=== PATIENT | female | born 1970 | race Caucasian/White ===

== ENCOUNTER 2024-01-14 16:19 | Observation (INO) ==
--- NOTE | 2024-01-14 16:24 | ED Triage Note ---
Date of Service January 14, 2024 Provider in Triage Author: Duke Montes History of Present Illness This patient was briefly evaluated while in triage. An abbreviated physical exam was performed. This patient is a 53-year-old Female who presents to the ED for evaluation dizziness/vertigo started on Sunday-listing to the left chest tightness/SOB, STINSON seen at PCP and sent here for "CVA R/O" EKG changes in the office. Physical Exam GENERAL: NAD CARDIOVASCULAR: RRR RESPIRATORY: CTA NEURO: speech clear, normal gait, no gross deficits Initial orders for labs and / or imaging were placed and patient was placed in the waiting area until a bed is available. Please see further documentation for the full ED course.
[2024-01-14 16:57] LABS: Hematocrit (blood only) 42.6 % (37.0-47.0); Hemoglobin 14.2 g/dl (12.0-16.0); Mean Corpuscular Hemoglobin 31.1 pg (25.0-34.0); Mean Corpuscular Hgb Conc 33.3 g/dL (32.0-36.0); Mean Corpuscular Volume 93.4 fL (80.0-100.0); Mean Platelet Volume 9.3 fL (9.4-12.4); Partial Thromboplastin Time 27 Seconds (21-31); Platelet Count 242 K/uL (130-400); Prothrombin Time 10.9 Seconds (9.0-12.0); RDW Coefficient of Variation 12.4 % (11.5-14.5); RDW Standard Deviation 42.8 fL (36.4-46.3); Red Blood Count 4.56 M/uL (4.20-5.40); White Blood Count 5.16 K/ul (4.8-10.8)
--- NOTE | 2024-01-14 17:02 | XRay Report ---
XR chest 1V portable CLINICAL HISTORY: SOB, DIZZY TECHNIQUE: Single frontal radiograph of the chest was obtained. Comparison: None available at the time of this dictation. FINDINGS: No lines and tubes are seen. The cardiomediastinal silhouette is normal. The lungs are clear. No evid ence of pleural effusion or pneumothorax. IMPRESSION: No acute abnormalities and in particular no radiographic evidence of pneumonia. ACT 112: Negative or not required by law. Electronically signed by: Eduar Jaramillo M.D. 01/14/2024 5:00 PM
[2024-01-14 17:08] LABS: Albumin Globulin Ratio 1.4 (0.9-2); Albumin Level 4.3 gm/dl (3.4-5.0); BUN Creatinine Ratio 8.3 (10-20); Bilirubin,Total 0.4 mg/dl (0.2-1.0); Calcium 9.2 mg/dl (8.6-10.3); Creatinine Clr Calc Pharmacy 10.7 ml/min; Est GFR (African American) 110.8 ml/min; Est GFR (Non-African American) 95.6 ml/min; Magnesium 2.1 mg/dl (1.7-2.4); Potassium 3.4 mmol/L (3.5-5.1); Total Protein 7.3 gm/dl (6.0-8.3)
[2024-01-14 17:13] LABS: Troponin I High Sensitivity 3.4 pg/ml (0-14)
[2024-01-14 17:21] LABS: Basophils # (auto) 0.03 K/uL (0.00-0.20); Basophils % (auto) 0.6 %; Eosinophils # (auto) 0.03 K/uL (0.00-0.50); Eosinophils % (auto) 0.6 %; Immature Granulocytes # (auto) 0.01 K/uL (0.01-0.20); Immature Granulocytes % (auto) 0.2 %; Lymphocytes # (auto) 2.77 K/uL (1.20-3.40); Lymphocytes % (auto) 53.7 %; Monocytes # (auto) 0.32 K/uL (0.11-0.59); Monocytes % (auto) 6.2 %; Neutrophils % (auto) 38.7 %
[2024-01-14] MEDS: OPTIRAY 320 125ml IV ONE (18:12)
--- NOTE | 2024-01-14 18:26 | Emergency Department Note ---
History of Present Illness General Chief complaint: Cardiac Assessment Stated complaint: VERTIGO, CHEST PAINS, HYPERTENSION, ABN EKG Time Seen by Provider: 01/14/24 17:56 History of Present Illness Maximum Pain Intensity: 4 This is a 53-year-old female that presents to the emergency department via private vehicle with complaints of "vertigo, dizziness, falling to the left side, chest pain". The patient notes this past Sunday she began with what she describes as vertigo and when she attempted to walk she was dizzy, and was falling to the left side. She notes that that seemed to improve but was still present over the weekend and with associated chest pressure worse with exertion. She also notes associated nausea. No previous symptoms such as this. She notes also some hot flashes secondary to menopause and some sweats. She notes a strong family history of heart disease with MIs in the age 50 range by family members. She notes at the present time she feels well and without symptoms however walking and here today she felt lightheaded. She has a history of hypertension. She has a history of hysterectomy. She denies any known drug allergies. No recent chiropractor manipulations. No head trauma or injury. Home Medications Medication Instructions Recorded Confirmed Type lisinopril 5 mg tablet 5 mg PO DAILY #30 tabs 09/07/21 01/14/24 Rx Allergies Allergy/AdvReac Type Severity Reaction Status Date / Time No Known Allergies Allergy Verified 01/14/24 18:30 Past Med/Surg History Problem List (Updated 01/15/24 @ 00:21 by Roque Riley PA-C) Dizziness (Acute) New onset headache Hypokalemia Hypertension Stroke-like symptoms Vertebral artery dissection (Acute) Dyspnea on exertion Palpitations Chest tightness (Acute) Medical History Anxiety Social History Smoking Status: Never smoker Hx Alcohol Use: Yes Alcohol type: wine Hx Substance Use: No Preferred Language: Syriac Communication Ability: Effective Hogshead Mat Inspector Required: No Beliefs That Will Affect Care: None Current Living Situation: Spouse Feels Safe at Home: Yes Review of Systems A total of 10 systems reviewed and were otherwise negative Physical Exam Vital Signs Vital Signs - 24 hr 01/14/24 16:22 01/14/24 16:46 01/14/24 16:48 Temperature 36.8 C Temperature Source Temporal Artery Scan Pulse Rate 71 69 Pulse Rate from SpO2 Sensor Respiratory Rate 15 Respiratory Effort / Characteristics Non-Labored Spontaneous Respiratory Depth Normal Blood Pressure 190/127 H 169/104 H Blood Pressure Mean 148 142 Pulse Oximetry 100 Sepsis Recent Fever Within 48 Hours No Sepsis New/Unexplained Change in Mental Status No Sepsis Action Taken by Nursing No Action Required 01/14/24 17:00 01/14/24 17:36 01/14/24 18:30 Temperature Temperature Source Pulse Rate 76 67 74 Pulse Rate from SpO2 Sensor 75 68 74 Respiratory Rate 15 20 15 Respiratory Effort / Characteristics Respiratory Depth Blood Pressure 153/105 H 154/100 H 170/116 H Blood Pressure Mean 128 118 136 Pulse Oximetry 99 98 98 Sepsis Recent Fever Within 48 Hours Sepsis New/Unexplained Change in Mental Status Sepsis Action Taken by Nursing 01/14/24 18:57 01/14/24 19:00 01/14/24 19:21 Temperature Temperature Source Pulse Rate 61 79 Pulse Rate from SpO2 Sensor 60 76 Respiratory Rate 16 20 Respiratory Effort / Characteristics Respiratory Depth Blood Pressure 162/94 H Blood Pressure Mean 134 Pulse Oximetry 99 97 Sepsis Recent Fever Within 48 Hours Sepsis New/Unexplained Change in Mental Status Sepsis Action Taken by Nursing 01/14/24 19:30 01/14/24 19:42 01/14/24 19:52 Temperature Temperature Source Pulse Rate 77 72 Pulse Rate from SpO2 Sensor Respiratory Rate 15 21 Respiratory Effort / Characteristics Respiratory Depth Blood Pressure 166/121 H Blood Pressure Mean 138 Pulse Oximetry Sepsis Recent Fever Within 48 Hours Sepsis New/Unexplained Change in Mental Status Sepsis Action Taken by Nursing 01/14/24 19:52 01/14/24 19:57 01/14/24 20:00 Temperature Temperature Source Pulse Rate 70 Pulse Rate from SpO2 Sensor 70 Respiratory Rate 16 Respiratory Effort / Characteristics Respiratory Depth Blood Pressure 166/121 H 170/95 H Blood Pressure Mean 138 141 Pulse Oximetry 98 Sepsis Recent Fever Within 48 Hours Sepsis New/Unexplained Change in Mental Status Sepsis Action Taken by Nursing 01/14/24 20:00 01/14/24 20:06 01/14/24 20:06 Temperature Temperature Source Pulse Rate Pulse Rate from SpO2 Sensor Respiratory Rate Respiratory Effort / Characteristics Respiratory Depth Blood Pressure 170/95 H 172/99 H 172/99 H Blood Pressure Mean 141 118 118 Pulse Oximetry Sepsis Recent Fever Within 48 Hours Sepsis New/Unexplained Change in Mental Status Sepsis Action Taken by Nursing 01/14/24 20:09 Temperature Temperature Source Pulse Rate 64 Pulse Rate from SpO2 Sensor Respiratory Rate 15 Respiratory Effort / Characteristics Respiratory Depth Blood Pressure Blood Pressure Mean Pulse Oximetry Sepsis Recent Fever Within 48 Hours Sepsis New/Unexplained Change in Mental Status Sepsis Action Taken by Nursing VITAL SIGNS - Vital signs and nursing notes were reviewed. Stable and afebrile. GENERAL -53-year-old female appearing her stated age who is in no acute distress. Communicates well with provider and answers questions appropriately. SKIN - Without rashes. HEAD - NC/AT. EYES - PERRL with EOMI bilaterally. Sclera anicteric. Palpebral conjunctiva pink and moist with no injection noted. EARS - No deformities of external structures noted on gross examination bilaterally. External auditory canals without discharge or otorrhea. Tympanic membranes pearly talbert without retraction or bulging. No fluid or purulent material visualized behind the TM. Handle of malleus, umbo, cone of light, pars tensa/flaccid all easily visualized. NOSE - Midline and without cyanosis. No epistaxis or purulent drainage noted. Septum midline without deviation or septal hematoma noted. MOUTH/OROPHARYNX - Without perioral cyanosis. Buccal mucosa pink and moist and without leukoplakia. Tongue midline with equal elevation of palate bilaterally. No tonsillar hypertrophy, erythema, or exudates noted. Good dentition noted. NECK - Neck with FROM. Supple to palpation. No nuchal rigidity. LUNGS - Chest wall symmetric without accessory muscle use, intercostals retractions, or central cyanosis. Normal vesicular breath sounds CTA B/L. No wheezes, rales, or rhonchi appreciated. CARDIAC - RRR with S1/S2. No murmur, rubs, or gallops appreciated. EXTREMITIES - No clubbing or peripheral cyanosis. +5/5 strength noted in UE/LE bilaterally. NEUROLOGIC - Cranial nerves II through XII grossly intact. PSYCH -alert, oriented and pleasant on exam Course Administered Medications Discontinued Medications Acetaminophen (Acetaminophen 325 Mg Tab) 650 mg PO NOW STA Stop: 01/14/24 20:02 Last Admin: 01/14/24 20:07 Dose: 650 mg Documented By: SADIE Aspirin (Aspirin Chew 324 Mg) 324 mg PO NOW STA Stop: 01/14/24 20:19 Last Admin: 07/01/24 20:23 Dose: 324 mg Documented By: SADIE Ioversol (Optiray 320 125ml) 119 ml IV ONCE ONE Stop: 01/14/24 18:12 Last Admin: 01/14/24 18:12 Dose: 119 ml Documented By: RICK Potassium Chloride (Potassium Chloride Crtab 20 Meq Tabcr) 20 meq PO NOW STA Stop: 01/14/24 20:29 Last Admin: 01/14/24 21:02 Dose: 20 meq Documented By: SADIE Medical Decision Making Laboratory Data 01/14/24 16:35 01/14/24 16:35 Lab Results 01/14/24 Range/Units 16:35 WBC 5.16 (4.8-10.8) K/ul RBC 4.56 (4.20-5.40) M/uL Hgb 14.2 (12.0-16.0) g/dl Hct 42.6 (37.0-47.0) % MCV 93.4 (80.0-100.0) fL MCH 31.1 (25.0-34.0) pg MCHC 33.3 (32.0-36.0) g/dL RDW Std Deviation 42.8 (36.4-46.3) fL RDW Coeff of Nevin 12.4 (11.5-14.5) % Plt Count 242 (130-400) K/uL MPV 9.3 L (9.4-12.4) fL Immature Gran % (Auto) 0.2 % Neut % (Auto) 38.7 % Lymph % (Auto) 53.7 % Billings % (Auto) 6.2 % Eos % (Auto) 0.6 % Baso % (Auto) 0.6 % Neut # (Auto) 2.00 (1.40-6.50) K/uL Lymph # (Auto) 2.77 (1.20-3.40) K/uL Billings # (Auto) 0.32 (0.11-0.59) K/uL Eos # (Auto) 0.03 (0.00-0.50) K/uL Baso # (Auto) 0.03 (0.00-0.20) K/uL Immature Gran # (Auto) 0.01 (0.01-0.20) K/uL PT 10.9 (9.0-12.0) Seconds INR 1.0 (0.9-1.1) APTT 27 (21-31) Seconds PTT Ratio 1.0 Sodium 140 (136-145) mmol/L Potassium 3.4 L (3.5-5.1) mmol/L Chloride 104 (98-107) mmol/L Carbon Dioxide 29 (21-32) mmol/L Anion Gap 7 (3-11) BUN 6 (6-23) mg/dl Creatinine 0.72 (0.6-1.2) mg/dl Est Cr Clr Drug Dosing 10.7 ml/min Est GFR ( Amer) 110.8 ml/min Est GFR (Non-Af Amer) 95.6 ml/min BUN/Creatinine Ratio 8.3 L (10-20) Glucose 105 H (70-99(Fasting)) mg/dl Calcium 9.2 (8.6-10.3) mg/dl Magnesium 2.1 (1.7-2.4) mg/dl Total Bilirubin 0.4 (0.2-1.0) mg/dl AST 15 (13-39) U/L ALT 11 (7-52) U/L Alkaline Phosphatase 76 (34-104) U/L Troponin I High Sens 3.4 (0-14) pg/ml Total Protein 7.3 (6.0-8.3) gm/dl Albumin 4.3 (3.4-5.0) gm/dl Globulin 3.0 (2.5-4.0) gm/dl Albumin/Globulin Ratio 1.4 (0.9-2) Imaging Data Radiologist's Impression: Chest X-Ray 01/14/24 16:24 XR chest 1V portable CLINICAL HISTORY: SOB, DIZZY TECHNIQUE: Single frontal radiograph of the chest was obtained. Comparison: None available at the time of this dictation. FINDINGS: No lines and tubes are seen. The cardiomediastinal silhouette is normal. The lungs are clear. No evidence of pleural effusion or pneumothorax. IMPRESSION: No acute abnormalities and in particular no radiographic evidence of pneumonia. ACT 112: Negative or not required by law. Electronically signed by: Eduar Jaramillo M.D. 01/14/2024 5:[address] 01/14/24 16:24 CT angio neck with con, CT head/brain wo con, CT angio head w con CLINICAL HISTORY: dizzy, hypertension TECHNIQUE: Contiguous axial CT images of the head were acquired from the base of the skull to the vertex without intravenous contrast administration. CT angiography of the head and neck was performed following intravenous administration of iodinated contrast. Coronal and sagittal MIPS were obtained from the axial data set and were submitted for review. Automated dose lowering techniques and/or adjustment according to patient size were utilized for this examination. All measurements were calculated based on NASCET criteria. Comparison: None available at the time of this dictation. FINDINGS: CT head: There is no acute intracranial hemorrhage or evidence of acute territorial infarction. No shift of the midline structures, mass effect, or extra-axial abnormalities are shown. Small thyroid nodules are seen which do not require follow-up by ACR criteria. CTA Neck: The left common carotid artery shares common origin with the innominate artery. There is no significant atherosclerotic plaque in the aortic arch or the origins of the innominate, left common carotid, and left subclavian arteries. Focal dissection is seen in the V4 segment of the right vertebral artery. The left vertebral artery is dominant. CTA Head: The anterior and posterior cerebral circulations are patent. No hemodynamically significant stenosis, aneurysm, dissection, or arteriovenous malformation is shown. IMPRESSION: 1. No acute intracranial hemorrhage, evidence of acute territorial infarction, or other acute intracranial disease process. 2. Focal dissection is seen in the V4 segment of the right vertebral artery. 3. No occlusion, hemodynamically significant stenosis, aneurysm, dissection, or arteriovenous malformation in the major intracranial arteries. Assessment of stenosis of the internal carotid arteries is based on NASCET criteria. ACT 112: Negative or not required by law. Electronically signed by: Eduar Jaramillo M.D. 01/14/2024 7:20 PM Head CTA 01/14/24 16:24 CT angio neck with con, CT head/brain wo con, CT angio head w con CLINICAL HISTORY: dizzy, hypertension TECHNIQUE: Contiguous axial CT images of the head were acquired from the base of the skull to the vertex without intravenous contrast administration. CT angiography of the head and neck was performed following intravenous administration of iodinated contrast. Coronal and sagittal MIPS were obtained from the axial data set and were submitted for review. Automated dose lowering techniques and/or adjustment according to patient size were utilized for this examination. All measurements were calculated based on NASCET criteria. Comparison: None available at the time of this dictation. FINDINGS: CT head: There is no acute intracranial hemorrhage or evidence of acute territorial infarction. No shift of the midline structures, mass effect, or extra-axial abnormalities are shown. Small thyroid nodules are seen which do not require follow-up by ACR criteria. CTA Neck: The left common carotid artery shares common origin with the innominate artery. There is no significant atherosclerotic plaque in the aortic arch or the origins of the innominate, left common carotid, and left subclavian arteries. Focal dissection is seen in the V4 segment of the right vertebral artery. The left vertebral artery is dominant. CTA Head: The anterior and posterior cerebral circulations are patent. No hemodynamically significant stenosis, aneurysm, dissection, or arteriovenous malformation is shown. IMPRESSION: 1. No acute intracranial hemorrhage, evidence of acute territorial infarction, or other acute intracranial disease process. 2. Focal dissection is seen in the V4 segment of the right vertebral artery. 3. No occlusion, hemodynamically significant stenosis, aneurysm, dissection, or arteriovenous malformation in the major intracranial arteries. Assessment of stenosis of the internal carotid arteries is based on NASCET criteria. ACT 112: Negative or not required by law. Electronically signed by: Eduar Jaramillo M.D. 01/14/2024 7:20 PM Neck CTA 01/14/24 16:24 CT angio neck with con, CT head/brain wo con, CT angio head w con CLINICAL HISTORY: dizzy, hypertension TECHNIQUE: Contiguous axial CT images of the head were acquired from the base of the skull to the vertex without intravenous contrast administration. CT angiography of the head and neck was performed following intravenous administration of iodinated contrast. Coronal and sagittal MIPS were obtained from the axial data set and were submitted for review. Automated dose lowering techniques and/or adjustment according to patient size were utilized for this examination. All measurements were calculated based on NASCET criteria. Comparison: None available at the time of this dictation. FINDINGS: CT head: There is no acute intracranial hemorrhage or evidence of acute territorial infarction. No shift of the midline structures, mass effect, or extra-axial abnormalities are shown. Small thyroid nodules are seen which do not require follow-up by ACR criteria. CTA Neck: The left common carotid artery shares common origin with the innominate artery. There is no significant atherosclerotic plaque in the aortic arch or the origins of the innominate, left common carotid, and left subclavian arteries. Focal dissection is seen in the V4 segment of the right vertebral artery. The left vertebral artery is dominant. CTA Head: The anterior and posterior cerebral circulations are patent. No hemodynamically significant stenosis, aneurysm, dissection, or arteriovenous malformation is shown. IMPRESSION: 1. No acute intracranial hemorrhage, evidence of acute territorial infarction, or other acute intracranial disease process. 2. Focal dissection is seen in the V4 segment of the right vertebral artery. 3. No occlusion, hemodynamically significant stenosis, aneurysm, dissection, or arteriovenous malformation in the major intracranial arteries. Assessment of stenosis of the internal carotid arteries is based on NASCET criteria. ACT 112: Negative or not required by law. Electronically signed by: Eduar Jaramillo M.D. 01/14/2024 7:20 PM Chest CTA 01/14/24 18:05 CT angio chest PE protocol CLINICAL HISTORY: Chest pain and dyspnea TECHNIQUE: Multidetector row helical CT of the chest was performed with angiographic protocol. Coronal and sagittal reformations were obtained. Coronal and sagittal MIPS were obtained from the axial data set and were submitted for review. Automated dose lowering techniques and/or adjustment according to patient size were utilized for this exam. CT DOSE: 1073.27 mGy.cm Comparison: Comparison is made to 01/14/2024 chest radiograph FINDINGS: Lungs and pleura: Atelectasis versus scarring is seen in the dependent portions of the lungs. Heart and pericardium: Heart size is normal. No pericardial effusion. Vessels: No evidence of pulmonary embolism. Mediastinum and wilfredo: Unremarkable. Chest wall and lower neck: Small thyroid nodules are noted which do not require follow-up by ACR criteria. Abdomen: Unremarkable. Bones: Unremarkable. IMPRESSION: No acute abnormality and in particular no evidence of pulmonary embolus. ACT 112: Negative or not required by law. Electronically signed by: Eduar Jaramillo M.D. 01/14/2024 7:13 PM [facility] Narrative Patient was seen and evaluated as above in room B02. Review was performed of triage nursing notes and vital signs. After obtaining a thorough history and physical examination the above work up was performed. Patient presents to us today for assessment of vertigo symptoms that began Sunday with balance issues, falling to the left side now with chest pain. On my assessment she is symptom- free. She is hypertensive. Patient was seen during a period of elevated volume and acuity in the emergency department and already had some testing as ordered from triage. CT angio studies of the head and neck were already ordered. Options of care were discussed with the patient. IV access was established. Labs were drawn. There is no leukocytosis or concerning anemia. Mild hypokalemia 3.4. Hyperglycemia 105. Initial troponin negative. EKG was performed and per my interpretation reveals normal sinus rhythm at a rate of 62 bpm. QTc 397. QRS 94. No ST elevation. This before the patient went to CT for the head and neck I did add on the chest to further evaluate the patient's symptoms for completeness. CT imaging as above. There is no PE. There is however comment of focal dissection in the V4 segment of the right vertebral artery. I did discuss this presentation with the on-call neurologist, Dr. Mclain and at this time we will proceed with MRI of the brain, blood pressure control, antiplatelet therapy such as with aspirin or Plavix. Patient is already being admitted at this time for further assessment of the exertional chest pain and will also at this time undergo further evaluation in the inpatient setting for this vertebral artery dissection. Case discussed with the hospitalist service. MRI will be ordered by the medicine service. Please refer to further documentation regarding her stay. GCS: 15 In the evaluation and treatment of this patient the following differential diagnoses were entertained: SC, PE, pericarditis, costochondritis, dissection, CVA, TIA, electrolyte disturbance, among others Impression & Plan Vertebral artery dissection, Dizziness, Chest tightness Discharge Plan Visit Data Chief Complaint: Cardiac Assessment Stated Complaint: VERTIGO, CHEST PAINS, HYPERTENSION, ABN EKG ED Provider: Luis Enrique Cedeño ED Midlevel Provider: Roque Riley Discharge Problem: Vertebral artery dissection, Dizziness, Chest tightness Patient Disposition: Admitted As Inpatient Condition: Good Discharge Instructions Interventions: ED Discharge Assessment Last Done: 01/14/24 21:33
--- NOTE | 2024-01-14 19:14 | CT Scan Report ---
CT angio chest PE protocol CLINICAL HISTORY: Chest pain and dyspnea TECHNIQUE: Multidetector row helical CT of the chest was performed with angiographic protocol. Argueta l and sagittal reformations were obtained. Coronal and sagittal MIPS were obtained from the axial lainey a set and were submitted for review. Automated dose lowering techniques and/or adjustment according to patient size were utilized for this exam. CT DOSE: 1073.27 mGy.cm Comparison: Comparison is made to 01/14/2024 chest radiograph FINDINGS: Lungs and pleura: Atelectasis versus scarring is seen in the dependent portions of the lungs. Heart and pericardium: Heart size is normal. No pericardial effusion. Vessels: No evidence of pulmonary embolism. Mediastinum and wilfredo: Unremarkable. Chest wall and lower neck: Small thyroid nodules are noted which do not require follow-up by ACR artur hogue. Abdomen: Unremarkable. Bones: Unremarkable. IMPRESSION: No acute abnormality and in particular no evidence of pulmonary embolus. ACT 112: Negative or not required by law. Electronically signed by: Eduar Jaramillo M.D. 01/14/2024 7:13 PM
--- NOTE | 2024-01-14 19:23 | CT Scan Report ---
CT angio neck with con, CT head/brain wo con, CT angio head w con CLINICAL HISTORY: dizzy, hypertension TECHNIQUE: Contiguous axial CT images of the head were acquired from the base of the skull to the arleth jesus without intravenous contrast administration. CT angiography of the head and neck was performed f ollowing intravenous administration of iodinated contrast. Coronal and sagittal MIPS were obtained fr om the axial data set and were submitted for review. Automated dose lowering techniques and/or adjus tment according to patient size were utilized for this examination. All measurements were calculated based on NASCET criteria. Comparison: None available at the time of this dictation. FINDINGS: CT head: There is no acute intracranial hemorrhage or evidence of acute territorial infarction. No sh ift of the midline structures, mass effect, or extra-axial abnormalities are shown. Small thyroid nodules are seen which do not require follow-up by ACR criteria. CTA Neck: The left common carotid artery shares common origin with the innominate artery. There is n o significant atherosclerotic plaque in the aortic arch or the origins of the innominate, left common carotid, and left subclavian arteries. Focal dissection is seen in the V4 segment of the right vert ebral artery. The left vertebral artery is dominant. CTA Head: The anterior and posterior cerebral circulations are patent. No hemodynamically significan t stenosis, aneurysm, dissection, or arteriovenous malformation is shown. IMPRESSION: 1. No acute intracranial hemorrhage, evidence of acute territorial infarction, or other acute intrac ranial disease process. 2. Focal dissection is seen in the V4 segment of the right vertebral artery. 3. No occlusion, hemodynamically significant stenosis, aneurysm, dissection, or arteriovenous malfor mation in the major intracranial arteries. Assessment of stenosis of the internal carotid arteries is based on NASCET criteria. ACT 112: Negative or not required by law. Electronically signed by: Eduar Jaramillo M.D. 01/14/2024 7:20 PM
--- NOTE | 2024-01-14 19:31 | History & Physical Report ---
Date of Service January 14, 2024 Assessment & Plan (1) Stroke-like symptoms: Plan: Patient had acute onset of dizziness and headache that caused her to fall on Wednesday 01/10 Patient is >24h from her onset of symptoms; TNKase would not be indicated Clinically, patient denies slurred speech, facial droop, or unilateral deficits She does endorse severe intermittent headache (which is new for her) and ongoing dizziness Head/neck imaging revealed focal dissection in the V4 segment of right vertebral artery MRI brain ordered, pending ASA 324 mg given in the ED Will plan to consult neurology pending MRI results May need to start on aspirin 81 mg daily Acetaminophen as needed for headaches Meclizine as needed for dizziness A.m. CBC, BMP, A1c, fasting lipid panel (2) Chest tightness: Plan: Intermittent chest tightness and SOB worse with exertion that began on Wednesday 01/10 Patient was concerned due to her strong family history of cardiac events CXR without acute findings Chest CTA without evidence of PE Troponin WNL x 2 EKG revealed NSR Echocardiogram ordered, pending Continuous telemetry monitoring (3) Vertebral artery dissection: Plan: See #1 (4) Hypertension: Plan: Patient was hypertensive at 190/127 on ED arrival No need for permissive HTN given timeline of symptoms Continue lisinopril (5) Hypokalemia: Plan: Mild; K 3.4 on arrival Potassium chloride 20mEq given Recheck a.m. K (6) New onset headache: (7) Dizziness: Plan Disposition: Obs -admit to [facility] telemetry Full code Heart healthy diet VTE PPx: SCDs; hold chemical DVT PPx pending MRI History of Present Illness Chief Complaint: Cardiac Assessment Primary Care Provider: Surekha Mccabe DO Fiona is a pleasant 53-year-old female with PMH of HTN and anxiety. She presented at the behest of her PCP on 01/13 for new onset headache, dizziness, chest tightness, and NUÑEZ over the weekend. She reports that her symptoms initially started on Wednesday 01/10. Symptoms came on acutely when she developed dizziness and fell. No head strike or neck injury. No LOC. No trauma to the chest wall. She initially thought it was an episode of vertigo; history of vertigo several years ago. She then began to notice new onset NUÑEZ when walking up steps. No SOB at rest. No orthopnea. She has noticed labored breathing, and believes she is becoming more winded than normal. She endorses chest tightness substernally that last 2 minutes at a time; alleviated by pursed breathing; she has been taking Tylenol for this. She also has intermittent headaches, located behind the eyes bilaterally. She rates the headaches 8/10 at present, 9/10 at worst. She has had intermittent dizziness on and off since Sunday, as well as visual changes such as blurry vision, but she believes her vision is always blurry. She wears contacts at baseline. Patient's only medication is lisinopril 5 mg daily, but she reports she took a couple additional tablets this weekend due to high blood pressure; BP has been around 170/100 via her home cuff. Patient is also been taking a course of Augmentin for a gum issue, but is currently at the end of her course. Significant family history for HTN, diabetes, MA, stroke, and CHF; her brother had an MA at 54 years old. No personal PMH of stroke, MA, diabetes, DVT/PE, or CHF. She denies any strokelike symptoms such as slurred speech, facial droop, or unilateral deficits. Patient denies smoking or tobacco use. She does endorse occasional alcohol use; and wine 3 nights ago. Patient is hypertensive at 166/121, admission; vitals otherwise stable. ED course: Aspirin 324mg ROS: Patient endorses night-sweats, intermittent episode dizziness, leaning to left side, severe bilateral HAs behind the eyes, chest tightness, SOB with exertion, and nausea/vomiting (on 01/10; resolved) Patient denies fever, chills, new body ache, loss of vision, slurred speech, facial droop, unilateral deficits, chest pain, pleuritic CP, SOB at rest, SOB when lying flat on back, abdominal pain, diarrhea, or change in urinary or bowel habits. Allergies Allergy/AdvReac Type Severity Reaction Status Date / Time No Known Allergies Allergy Verified 01/14/24 18:30 Home Medications Medication Instructions Recorded Confirmed Type lisinopril 5 mg tablet 5 mg PO DAILY #30 tabs 09/07/21 01/14/24 Rx Past Med/Surg History Problem List (Updated 01/15/24 @ 00:21 by Roque Riley PA-C) Dizziness (Acute) New onset headache Hypokalemia Hypertension Stroke-like symptoms Vertebral artery dissection (Acute) Dyspnea on exertion Palpitations Chest tightness (Acute) Medical History Anxiety Social History Smoking Status: Never smoker Hx Alcohol Use: Yes Alcohol type: wine Hx Substance Use: No Preferred Language: [place] 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 Beliefs That Will Affect Care: None Current Living Situation: Spouse Feels Safe at Home: Yes Review of Systems Review of Systems: See HPI above Physical Exam Physical Exam: General: no acute distress; pleasant affect non-toxic appearing; cooperative; SpO2 97% on RA HEENT: normocephalic, atraumatic; no scleral icterus; PERRLA; moist mucus membrane; vision and hearing grossly intact; patient demonstrates ability to smile, frown, and lift eyebrows without unilateral deficits; she reports sensation is intact and symmetric measured at 3 dermatomes along face Neck: supple; no lymphadenopathy; trachea midline; patient demonstrates ability to shrug shoulders against resistance without pain; she notes that she feels diz zy when she rotates her neck left and right Skin: warm, dry without signs of tenting; no cyanosis; no rashes, bruising, lesions, or erythema noted CV: chest wall NTP; RRR; S1/S2 normal; no murmurs/rubs/gallops; pulses intact and symmetric at radial, DP, and PT Lungs: no acute respiratory distress; symmetrical chest wall expansion; clear breath sounds across all lung oh w/o adventitious sounds; no wheezing ABD: Soft, NTP; BS present; no rebound/guarding; no distention MSK: no tics or fasciculations; no edema noted in the LEs b/l, nonerythematous; 5/5 delivery recruiter strength bilaterally Neuro: A&Ox3; normal mood and affect; fluent speech; no facial droop or slurred speech; no focal deficits; sensation grossly intact in the face/UEs/LEs b/l; negative pronator drift Results & Data Results & Data Vital Signs (Past 12 Hours) Vital Signs Temp Pulse Resp BP Pulse Ox 01/14/24 19:00 162/94 H 01/14/24 18:57 61 16 99 01/14/24 18:30 74 15 170/116 H 98 01/14/24 17:36 67 20 154/100 H 98 01/14/24 17:00 76 15 153/105 H 99 01/14/24 16:48 69 01/14/24 16:46 169/104 H 01/14/24 16:22 36.8 C 71 15 190/127 H 100 Laboratory Results Abnormal lab results 01/14/24 Range/Units 16:35 MPV 9.3 L (9.4-12.4) fL Potassium 3.4 L (3.5-5.1) mmol/L BUN/Creatinine Ratio 8.3 L (10-20) Glucose 105 H (70-99(Fasting)) mg/dl Diagnostic Findings Chest X-Ray 01/14/24 16:24 XR chest 1V portable CLINICAL HISTORY: SOB, DIZZY TECHNIQUE: Single frontal radiograph of the chest was obtained. Comparison: None available at the time of this dictation. FINDINGS: No lines and tubes are seen. The cardiomediastinal silhouette is normal. The lungs are clear. No evidence of pleural effusion or pneumothorax. IMPRESSION: No acute abnormalities and in particular no radiographic evidence of pneumonia. ACT 112: Negative or not required by law. Electronically signed by: Eduar Jaramillo M.D. 01/14/2024 5:[address] 01/14/24 16:24 CT angio neck with con, CT head/brain wo con, CT angio head w con CLINICAL HISTORY: dizzy, hypertension TECHNIQUE: Contiguous axial CT images of the head were acquired from the base of the skull to the vertex without intravenous contrast administration. CT angiography of the head and neck was performed following intravenous administration of iodinated contrast. Coronal and sagittal MIPS were obtained from the axial data set and were submitted for review. Automated dose lowering techniques and/or adjustment according to patient size were utilized for this examination. All measurements were calculated based on NASCET criteria. Comparison: None available at the time of this dictation. FINDINGS: CT head: There is no acute intracranial hemorrhage or evidence of acute territorial infarction. No shift of the midline structures, mass effect, or extra-axial abnormalities are shown. Small thyroid nodules are seen which do not require follow-up by ACR criteria. CTA Neck: The left common carotid artery shares common origin with the innominate artery. There is no significant atherosclerotic plaque in the aortic arch or the origins of the innominate, left common carotid, and left subclavian arteries. Focal dissection is seen in the V4 segment of the right vertebral artery. The left vertebral artery is dominant. CTA Head: The anterior and posterior cerebral circulations are patent. No hemodynamically significant stenosis, aneurysm, dissection, or arteriovenous malformation is shown. IMPRESSION: 1. No acute intracranial hemorrhage, evidence of acute territorial infarction, or other acute intracranial disease process. 2. Focal dissection is seen in the V4 segment of the right vertebral artery. 3. No occlusion, hemodynamically significant stenosis, aneurysm, dissection, or arteriovenous malformation in the major intracranial arteries. Assessment of stenosis of the internal carotid arteries is based on NASCET criteria. ACT 112: Negative or not required by law. Electronically signed by: Eduar Jaramillo M.D. 01/14/2024 7:20 PM Head CTA 01/14/24 16:24 CT angio neck with con, CT head/brain wo con, CT angio head w con CLINICAL HISTORY: dizzy, hypertension TECHNIQUE: Contiguous axial CT images of the head were acquired from the base of the skull to the vertex without intravenous contrast administration. CT angiography of the head and neck was performed following intravenous administration of iodinated contrast. Coronal and sagittal MIPS were obtained from the axial data set and were submitted for review. Automated dose lowering techniques and/or adjustment according to patient size were utilized for this examination. All measurements were calculated based on NASCET criteria. Comparison: None available at the time of this dictation. FINDINGS: CT head: There is no acute intracranial hemorrhage or evidence of acute territorial infarction. No shift of the midline structures, mass effect, or extra-axial abnormalities are shown. Small thyroid nodules are seen which do not require follow-up by ACR criteria. CTA Neck: The left common carotid artery shares common origin with the innominate artery. There is no significant atherosclerotic plaque in the aortic arch or the origins of the innominate, left common carotid, and left subclavian arteries. Focal dissection is seen in the V4 segment of the right vertebral artery. The left vertebral artery is dominant. CTA Head: The anterior and posterior cerebral circulations are patent. No hemodynamically significant stenosis, aneurysm, dissection, or arteriovenous malformation is shown. IMPRESSION: 1. No acute intracranial hemorrhage, evidence of acute territorial infarction, or other acute intracranial disease process. 2. Focal dissection is seen in the V4 segment of the right vertebral artery. 3. No occlusion, hemodynamically significant stenosis, aneurysm, dissection, or arteriovenous malformation in the major intracranial arteries. Assessment of stenosis of the internal carotid arteries is based on NASCET criteria. ACT 112: Negative or not required by law. Electronically signed by: Eduar Jaramillo M.D. 01/14/2024 7:20 PM Neck CTA 01/14/24 16:24 CT angio neck with con, CT head/brain wo con, CT angio head w con CLINICAL HISTORY: dizzy, hypertension TECHNIQUE: Contiguous axial CT images of the head were acquired from the base of the skull to the vertex without intravenous contrast administration. CT angiography of the head and neck was performed following intravenous administration of iodinated contrast. Coronal and sagittal MIPS were obtained f rom the axial data set and were submitted for review. Automated dose lowering techniques and/or adjustment according to patient size were utilized for this examination. All measurements were calculated based on NASCET criteria. Comparison: None available at the time of this dictation. FINDINGS: CT head: There is no acute intracranial hemorrhage or evidence of acute territorial infarction. No shift of the midline structures, mass effect, or extra-axial abnormalities are shown. Small thyroid nodules are seen which do not require follow-up by ACR criteria. CTA Neck: The left common carotid artery shares common origin with the innominate artery. There is no significant atherosclerotic plaque in the aortic arch or the origins of the innominate, left common carotid, and left subclavian arteries. Focal dissection is seen in the V4 segment of the right vertebral artery. The left vertebral artery is dominant. CTA Head: The anterior and posterior cerebral circulations are patent. No hemodynamically significant stenosis, aneurysm, dissection, or arteriovenous malformation is shown. IMPRESSION: 1. No acute intracranial hemorrhage, evidence of acute territorial infarction, or other acute intracranial disease process. 2. Focal dissection is seen in the V4 segment of the right vertebral artery. 3. No occlusion, hemodynamically significant stenosis, aneurysm, dissection, or arteriovenous malformation in the major intracranial arteries. Assessment of stenosis of the internal carotid arteries is based on NASCET criteria. ACT 112: Negative or not required by law. Electronically signed by: Eduar Jaramillo M.D. 01/14/2024 7:20 PM Chest CTA 01/14/24 18:05 CT angio chest PE protocol CLINICAL HISTORY: Chest pain and dyspnea TECHNIQUE: Multidetector row helical CT of the chest was performed with angiographic protocol. Coronal and sagittal reformations were obtained. Coronal and sagittal MIPS were obtained from the axial data set and were submitted for review. Automated dose lowering techniques and/or adjustment according to patient size were utilized for this exam. CT DOSE: 1073.27 mGy.cm Comparison: Comparison is made to 01/14/2024 chest radiograph FINDINGS: Lungs and pleura: Atelectasis versus scarring is seen in the dependent portions of the lungs. Heart and pericardium: Heart size is normal. No pericardial effusion. Vessels: No evidence of pulmonary embolism. Mediastinum and wilfredo: Unremarkable. Chest wall and lower neck: Small thyroid nodules are noted which do not require follow-up by ACR criteria. Abdomen: Unremarkable. Bones: Unremarkable. IMPRESSION: No acute abnormality and in particular no evidence of pulmonary embolus. ACT 112: Negative or not required by law. Electronically signed by: Eduar Jaramillo M.D. 01/14/2024 7:13 PM ECG Additional Comments: ECG revealed NSR at 62 bpm; QTc 397 Code Status & VTE Plan Code Status Full code VTE Prophylaxis Plan VTE Prophylaxis will be ordered: Yes Supervising Physician Co-Signing Physician Notes Patient seen and examined, chart reviewed, case discussed with TARYN Parsons and I agree with the assessment and plan as above. In brief, patient is a 53yo female with history of HTN presenting with acute onset headache, dizziness as well as chest tightness and NUÑEZ. Her blood pressure has been high as well - she has taken some extra Lisinopril tablets. On exam patient is afebrile, hypertensive Skin - intact, no rash HEENT- MMM, neck supple Heart - +S1/S2, regular, no m/r/g Lungs - CTA, no rales/rhonchi/wheezes Abd - +BS, soft, NT/ND Ext - warm well perfused Neuro - no focal deficits, CN intact Labs and images reviewed MRI complete with no evidence of CVA Vertebral artery dissection noted - focal dissection at the V4 segment of the right vertebral artery Assessment/Plan 53yo female with headache, vertigo. Found to have focal dissection of right vertebral artery - V4. No CVA on MRI. No focal deficits on MRI -ASA 325mg given - will continue 81mg po daily -Blood pressure control - continue Lisinopril 5mg po daily - consider increasing if BP remains elevated vs adding additional agent ?Amlodipine -Check 2D echo - patient reports new NUÑEZ -Remainder as above PG Care Time/CCT Total # of Minutes Spent Total Time Spent with Patient: Total time spent is greater than 50% in coordination of care (as documented) at patient's floor/unit and/or counseling patient: [place] [address] INT INP/OBS CARE 3/75MIN Patient Type New Medical Decision Making High Complexity Diagnoses Stroke-like symptoms R29.90 Chest tightness R07.89 Vertebral artery dissection I77.74 Hypertension I10 Hypertension type: unspecified Hypokalemia E87.6 New onset headache R51.9 Dizziness R42 (4) Hypertension Hypertension type: unspecified Qualified Code(s): I10 - Essential (primary) hypertension
[2024-01-14] MEDS ORDERED: PHARMACIST DISCHARGE MED REC CONSULT PRN (20:04)
[2024-01-14] MEDS: ACETAMINOPHEN 325 MG TAB PO STA (20:07)
[2024-01-14] MEDS: ASPIRIN CHEW 324 MG PO STA (20:23)
[2024-01-14] MEDS: POTASSIUM CHLORIDE CRTAB 20 MEQ TABCR PO STA (21:02)
[2024-01-14] MEDS ORDERED: ONDANSETRON INJ 2 MG/ML 2 ML VIAL IV PRN (21:50)
[2024-01-14] MEDS ORDERED: MECLIZINE 12.5 MG TAB PO PRN (21:50)
--- NOTE | 2024-01-15 00:14 | Magnetic Resonance Report ---
Exam(s): MRI HEAD Without Contrast EXAM: MR Head Without Intravenous Contrast CLINICAL HISTORY: Reason for exam: V4 right vertebral artery dissection; STINSON; dizzy. TECHNIQUE: Magnetic resonance images of the head/brain without intravenous contrast in multiple planes. COMPARISON: Comparison made to prior head CT of January 14, 2024. FINDINGS: Brain: Mild nonspecific white matter changes. The flow voids at the base of the brain are intact. No mass. No hemorrhage. No acute infarct. Ventricles: Unremarkable. No ventriculomegaly. Bones/joints: Unremarkable. No acute fracture. Sinuses: Unremarkable as visualized. No acute sinusitis. Mastoid air cells: Unremarkable as visualized. No mastoid effusion. Orbits: Unremarkable as visualized. IMPRESSION: No evidence of acute intracranial pathology. Mild nonspecific white matter changes. Electronically signed by: Aby Botello MD 01/15/24 00:14 AM
[2024-01-15] MEDS: ACETAMINOPHEN 325 MG TAB PO PRN (02:52)
[2024-01-15 06:31] LABS: Hematocrit (blood only) 39.6 % (37.0-47.0); Hemoglobin 13.3 g/dl (12.0-16.0); Mean Corpuscular Hemoglobin 31.3 pg (25.0-34.0); Mean Corpuscular Hgb Conc 33.6 g/dL (32.0-36.0); Mean Corpuscular Volume 93.2 fL (80.0-100.0); Mean Platelet Volume 9.6 fL (9.4-12.4); Platelet Count 203 K/uL (130-400); RDW Coefficient of Variation 12.3 % (11.5-14.5); RDW Standard Deviation 42.2 fL (36.4-46.3); Red Blood Count 4.25 M/uL (4.20-5.40); White Blood Count 4.54 K/ul (4.8-10.8)
[2024-01-15 06:48] LABS: Calcium 8.7 mg/dl (8.6-10.3); Potassium 3.4 mmol/L (3.5-5.1)
[2024-01-15 06:54] LABS: BUN Creatinine Ratio 8.1 (10-20); Chol HDL Ratio 2.2 (0-5); Creatinine Clr Calc Pharmacy 90.6 ml/min; Est GFR (African American) 119.3 ml/min; Est GFR (Non-African American) 102.9 ml/min
[2024-01-15 06:58] LABS: Basophils # (auto) 0.05 K/uL (0.00-0.20); Basophils % (auto) 1.1 %; Eosinophils # (auto) 0.07 K/uL (0.00-0.50); Eosinophils % (auto) 1.5 %; Lymphocytes # (auto) 2.33 K/uL (1.20-3.40); Lymphocytes % (auto) 51.3 %; Monocytes # (auto) 0.31 K/uL (0.11-0.59); Monocytes % (auto) 6.8 %; Neutrophils # (auto) 1.78 K/uL (1.40-6.50); Neutrophils % (auto) 39.3 %; RBC Morphology Unremarkable
[2024-01-15 07:29] LABS: Estimated Average Glucose 108 mg/dl; Hemoglobin A1C 5.4 % (4.5-5.6)
--- NOTE | 2024-01-15 07:46 | Hospitalist Progress Note ---
Date of Service January 15, 2024 Assessment & Plan (1) Stroke-like symptoms: Plan: Patient had acute onset of dizziness and headache that caused her to fall on Wednesday 01/10 Patient is >24h from her onset of symptoms; TNKase not be indicated Clinically, patient denies slurred speech, facial droop, or unilateral deficits She does endorse severe intermittent headache (which is new for her) and ongoing dizziness Head/neck imaging revealed focal dissection in the V4 segment of right vertebral artery MRI brain ordered, without stroke ASA 324 mg given in the ED, consult neurology start on aspirin 81 mg daily, ABCD2 score is 2, recommending antiplatelet therapy Acetaminophen as needed for headaches Meclizine as needed for dizziness (2) Chest tightness: Plan: Intermittent chest tightness and SOB worse with exertion that began on Wednesday 01/10 Patient was concerned due to her strong family history of cardiac events CXR without acute findings Chest CTA without evidence of PE Troponin WNL x 2 EKG revealed NSR Echocardiogram , pending Continuous telemetry monitoring (3) Hypertension: Plan: Patient was hypertensive at 190/127 on ED arrival No need for permissive HTN given not ischemic stroke need to control BP given dissection increased dose of lisinopril (4) Hypokalemia: Plan: continue to replete, magnesium is replete Plan Full code VTE PPx: SCDs; hold chemical DVT PPx pending MRI Admission and Anticipated Discharge Date Admission Date: January 14, 2024 Results & Data Results & Data Vital Signs (Past 12 Hours) Vital Signs Temp Pulse Pulse Resp BP BP Pulse Ox 01/15/24 07:09 81 01/15/24 02:51 97.5 F L 61 18 169/99 H 98 01/14/24 23:39 90 01/14/24 21:51 97.9 F 69 16 178/92 H 100 01/14/24 21:12 58 L 17 100 01/14/24 21:12 57 L 01/14/24 20:09 64 15 01/14/24 20:06 172/99 H 01/14/24 20:06 172/99 H 01/14/24 20:00 170/95 H 01/14/24 20:00 170/95 H 01/14/24 19:57 70 16 98 01/14/24 19:52 166/121 H 01/14/24 19:52 166/121 H O2 Del Method 01/15/24 07:09 01/15/24 02:51 Room Air 01/14/24 23:39 01/14/24 21:51 Room Air 01/14/24 21:12 01/14/24 21:12 01/14/24 20:09 01/14/24 20:06 01/14/24 20:06 01/14/24 20:00 01/14/24 20:00 01/14/24 19:57 01/14/24 19:52 01/14/24 19:52 PG Care Time/CCT Total # of Minutes Spent Total Time Spent with Patient: Total time spent is greater than 50% in coordination of care (as documented) at patient's floor/unit and/or counseling patient: Coding Diagnoses Stroke-like symptoms R29.90 Chest tightness R07.89 Hypertension I10 Hypertension type: unspecified Hypokalemia E87.6 (3) Hypertension Hypertension type: unspecified Qualified Code(s): I10 - Essential (primary) hypertension
--- OUTSIDE RECORDS SUMMARY | 2024-01-15 07:50 | External Medical Summary | Continuity of Care Document ---
Author Name Unknown Organization [address] [place] [address] [id number] Care Team Providers Care Quantitative Analyst Name Role Phone Emelia Simmons Primary Care Physician [phone] Encounter [facility] [phone] Date(s): 07/17/23 - 07/17/23 [facility] [address] [facility] [address] [facility] [address] [facility] [address] [place] [address] [phone] Encounter Diagnosis Hot flashes(Discharge Diagnosis) - 07/17/23 COVID(Discharge Diagnosis) - 07/17/23 Discharge Disposition: Home or Self Care Attending Physician: MD Neo Christopher Allergies, Adverse Reactions, Alerts No Known Medication Allergies Assessment and Plan Extracted from: Title:TeleHealth Visit Note Author:DO Leon Paige M Date:07/17/23 1.Hot flashes Chronic condition, stable Goal:Resolution Data: N/A Plan: Symptoms have improved significantly since starting Fluoxetine. Patient desires to stay at 10mg dose for now, discussed that there is room to increase dose of medication in future if needed. Plan to follow up in 2-3 months. 2.COVID Acute, uncomplicated illness/injury Goal:Resolution Data: N/A Plan: Discussed option for Paxlovid, patient defers at this time. Continue symptom management with ibuprofen, Tylenol as needed, adequate hydration. Discussed return precautions/indications for ER assessment. Immunizations Given and Recorded Vaccine Date Status Refusal Reason SARS-CoV-2 (COVID-19) mRNA BNT-162b2 vax 06/07/21 Recorded SARS-CoV-2 (COVID-19) mRNA BNT-162b2 vax 11/08/20 Recorded SARS-CoV-2 (COVID-19) mRNA BNT-162b2 vax 10/18/20 Recorded tetanus/diphtheria/pertuss, acel (Tdap) 01/10/19 G iven Medications Ativan 0.5 mg oral tablet Start: 12/16/21 13:42:00 EDT, 1 tab, PO, Daily, Disp# 10 tab, Refills: 0, PRN: as needed for anxiety, Pharmacy: [facility][id number] Start Date: 12/16/21 Status: Ordered FLUoxetine 10 mg oral capsule Start: 07/17/23 13:42:00 EST, 1 cap, PO, Daily, Disp# 90 cap, Refills: 1, Take 1 capsule by mouth daily, Pharmacy: [facility][id number] Start Date: 07/17/23 Stop Date: 01/13/24 Status: Ordered lisinopril 5 mg oral tablet Start: 05/16/23 10:19:00 EDT, 1 tab, PO, Daily, Disp# 90 tab, Refills: 3, Pharmacy: [facility] #[id number] Start Date: 05/16/23 Status: Ordered Mental Status 07/17/23 Barriers to Learning one year None evide nt Mandatory Health Literacy Documentation Yes Health Literacy Communication Barriers N ever Primary Language Colombian Problem List Condition Confirmation Course Effective Dates Status Health St atus Informant Anxiety Confirmed Active Breast lump Confirmed Active History of IBS Confirmed Active Diagnosis Diagnosis Type Effective Dates Health Status Clini nancy Service Informant Hot flashes Discharge Diagnosis 07/17/23 COVID Discharge Diagnosis 07/17/23 Procedures Procedure Date Related Diagnosis Body Site Status Diagnostic mammogram 1 06/24/19 Co mpleted Mammogram Diagnostic and tar geted bilateral US 2 12/18/18 Completed Breast implant removal 07/16/17 Co mpleted Ventilation-perfusion scan 3 10/16/14 Completed Chest x-ray 4 10/15/14 Completed Breast implantation 07/16/06 Compl eted Hysterectomy 07/16/00 Completed Caesarean delivery 07/16/94 Comple darlin Umbilical hernia 07/16/88 Complete d 1Right Dx Mammo and Targeted Right US: Stable mammographic appearacne of the right breast including postsurgical changes. Stable sonographic appearance of a probably benign hypoechoic and anechoic mass in the 12:30 right breast, 2 cm fromthe nipple on US. Another six- month f/u right diagnostic tomosynthesis mammogram and repeat targeted US is recommended to ensure longer stability. 2Impression: No suspicious masses seen in the region of the palpable lump pointed out by the patientin the right 12:00 breast. A few small scattered cysts were seen in the region of the palpablel lump on ultrasound. One hypoechoic 8 mm mass in the right 12:30 breast seen on ultrasound is probably benign and likely represents a complicated cyst. Recommend follow-up diagnostic tomosynthesis mammograms and repeat targeted ultrasound of the right breast in 6 months to confirm stability. Also recommend clinical follow-up for the palpable right breast lum and right breast pain. 2. No suspicious mass seen within the left superior breast mammographically or sonographically. Small scattered cysts were seen the left superior breast during the ultrasound exam. Recommend clinicalfollow-up for the palpable left breast lump. The patient has been verbally notified of the results. 3Normal study. no evidence of pulmonary embolism. 4No significant abnormality. Social History Social History Type Response Smoking Status Never smoked cigaret irene Sex Female FCM Outpt Note * MD Noe Christopher: MODIFY MD Noe Christopher: MODIFY Event Display: FCM Outpt Note Authored Date: TeleHealth Visit Note I have confirmed the patients name and date of . The patient has consented to this service,and I have advised the patient that this is a billable visit for which they may be subject to a copay. [X ] The patient has initiated this visit after he/she was informed of the availability of telehealth for this medically necessary visit. [X ] The provider initiated this visit after explaining the need for this visit to the patient, who has consented to this virtual visit. I am located at my: [X ] Office [ _ ] Home [ _ ] Other: _ The patient is located at: [X ] Home [ _ ] Other: _ This visit was conducted via live audio/video technology: [X ] [facility] [ _ ] Zoom This visit was conducted via [ _ ] Telephone, and was not related to a visit or procedure that occurred within the past 7 days. Total time spent communicating with the patient:15 minutes Chief Complaint F/U for medication, tested + for Covid, migraine, lethargic, diarrhea History of Present Illness Fiona is52 year-old female who presents today via telehealth for follow up. Hot Flashes/Anxiety -Was initially started on Venlafaxine, had side effects and stopped this medication -Patient was agreeable to starting Fluoxetine and has been taking this now for several months -Notes that hot flashes have improved significantly and anxiety has also improved COVID -Symptoms started last /Sunday. Tested positive for COVID on Sunday -Ongoing headaches, fatigue, diarrhea, cough, and some congestion -Taking Tylenol and Ibuprofen -Has a pulse ox at home but has not checked it Physical Exam General: No acute distress, resting comfortably Further assessment/exam unable to assess due to telehealth appointment Assessment/Plan 1.Hot flashes Chronic condition, stable Goal:Resolution Data: N/A Plan: Symptoms have improved significantly since starting Fluoxetine. Patient desires to stay at 10mg dose for now, discussed that there is room to increase dose of medication in future if needed. Plan to follow up in 2-3 months. 2.COVID Acute, uncomplicated illness/injury Goal:Resolution Data: N/A Plan: Discussed option for Paxlovid, patient defers at this time. Continue symptom management with ibuprofen, Tylenol as needed, adequate hydration. Discussed return precautions/indications for ER assessment. Attestation Patient's case reviewed in detail with Dr. Leon, agree with detail of history and physical as documented above. Plan reviewed in detail with providing resident physician. Problem List/Past Medical History Ongoing Anxiety Breast lump History of IBS Procedure/Surgical History Diagnostic mammogram (06/24/2019)Mammogram Diagnostic and targeted bilateral US (12/18/2018)Breast implant removal (07/16/2017)Ventilation- perfusion scan (10/16/2014)Chest x-ray (10/15/2014)Breast implantation (07/16/2006)Hysterectomy (07/16/2000)Caesarean delivery ( 5)Umbilical hernia (07/16/1988) Medications FLUoxetine(FLUoxetine 10 mg oral capsule), 10 mg= 1 cap, PO, Daily, 1 refills lisinopril(lisinopril 5 mg oral tablet), 5 mg= 1 tab, PO, Daily, 3 refills LORazepam(Ativan 0.5 mg oral tablet), 0.5 mg= 1 tab, PO, Daily, PRN Allergies No Known Medication Allergies Social History Smoking Status Never smoked cigarettes Alcohol - Low Risk - Comments: wine 2-3 days per week Employment/School - Comments: 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 Heart attack: PGF. Hypertension: Mother. Malignant tumor of lung: MGM. Stroke: Father. Type II diabetes mellitus: MGM. Health Status Family Member(s) Immunizations Vaccine Date Status SARS-CoV-2 (COVID-19) mRNA BNT-162b2 vax 06/07/2021 Recorded SARS-CoV-2 (COVID-19) mRNA BNT-162b2 vax 11/08/2020 Recorded SARS-CoV-2 (COVID-19) mRNA BNT-162b2 vax 10/18/2020 Recorded tetanus/diphtheria/pertuss, acel (Tdap) 01/10/2019 Given Recommendations Health Maintenance Pending(in the next year) OverDue Adult Influenza Vaccine due01/12/23and every 1year Due Adult COVID-19 Vaccination due07/17/23Unknown Frequency Adult Social Determinants of Health Screening due07/17/23Unknown Frequency Colorectal Cancer Screening due07/17/23Unknown Frequency Shingles Vaccine due07/17/23One-time only Due In Future Body Mass Index not due until04/24/24and every Satisfied(in the past 1 year) Satisfied Body Mass Index on04/24/23.Satisfied by JENELLE Scherer Paul Breast Cancer Screening on01/03/23.Satisfied by JENELLE Omalley Kiara Electronic Signature on File Electronically Reviewed/Signed by: Marianna Leon Author Signature Dt/Tm:07/17/2023 01:58 PM Resident Department of Family Medicine Electronically Reviewed/Signed by: MD Lena Salazarigner Signature Dt/Tm: 07/19/2023 10:29AM Department of Family Medicine PMW Patient Care team information Care Team Personnel Name: DO Simmons Mehwish Position: Physician Member Role: Primary Care Provider Address: Address: [address] [place] [address] Care Team Related Persons Name: ANDREW CHANG Address: home [address] [place], [place] [id number]
[2024-01-15] MEDS: POTASSIUM CHLORIDE CRTAB 20 MEQ TABCR PO STA (08:41)
[2024-01-15] MEDS: lisinopril 10 MG TAB PO SCH (08:41)
[2024-01-15] MEDS: ASPIRIN 81 MG ECTAB PO SCH (08:42)
[2024-01-15] MEDS ORDERED: lisinopril 5 MG TAB PO SCH (09:00)
[2024-01-15] MEDS ORDERED: KETOROLAC 30 MG/ML VIAL IV ONE (10:10)
--- NOTE | 2024-01-15 11:14 | Neurology Consultation ---
Date of Consultation January 15, 2024 Assessment & Plan (1) Vertebral artery dissection: (2) Dizziness: (3) New onset headache: (4) Hypertension: Plan 53-year-old female with a 4-day history of dizziness, frontal headache, episode of nausea, retching, and emesis, vertigo, tendency to list to the left, found to have a small focal dissection of the right V4 segment of the vertebral artery on CTA of the head and neck. There is no associated vessel occlusion or aneurysm. No evidence of associated acute or subacute stroke in the brainstem, cerebellum, or posterior circulation on MRI. She is hypertensive and her brain MRI reveals a mild degree of chronic microvascular ischemic disease. She has an intact neurological examination. The clinical significance of the observed focal vertebral dissection is uncertain. Her symptoms could be related to vestibulopathy. Would recommend aspirin 81 mg/day. Plan for follow-up CTA or MRA of the head and neck to be done in 3 months. Continue with lisinopril for management of hypertension. Systolic blood pressure goal 130 mmHg or less. Meclizine, Zofran, and Tylenol as needed for symptoms. PT/OT Consider outpatient PT for vertigo if symptoms persist. (Avoid chiropractic treatment for neck pain.) May follow-up in neurology clinic with myself or an AD in 3 to 4 weeks. History of Present Illness Reason for Consultation: vertebral artery dissection Requesting Physician: Leland Attending Physician: Kb Ha MD History of Present Illness The patient is a 53-year-old female with a chief complaint of dizziness and listing to the left side that began 4 days ago. The symptoms have been triggered by walking and movement. She describes the dizziness as a vague feeling of motion or spinning. She has had associated nausea as well as an episode of retching and emesis a few days ago. She also complains of a bilateral frontal headache as well as a vague discomfort of the anterior throat, no neck pain, no pain with swallowing, no change in speech, hearing, or vision. She does complain of bilateral ear fullness. She recalls an episode of vertigo that occurred about 15 years ago which persisted for several days before resolution. History also notable for hypertension, has been prescribed lisinopril. No prior history of stroke. A CT of the head including CTA of the neck completed yesterday was negative for hemorrhage or acute process. There is a small focal dissection in the V4 segment of the right vertebral artery. The left vertebral artery is dominant. There is no significant atherosclerotic plaque of the vessels. No evidence of fibromuscular dysplasia. There is no associated vessel occlusion or aneurysm. A brain MRI is negative for acute process. There is evidence of mild chronic small vessel ischemic disease. I did independently review these images. There is no evidence of acute or subacute brainstem or cerebellar infarct. She was given a loading dose of aspirin in the emergency department and is now ordered aspirin 81 mg/day. Her dosage of lisinopril has been increased to 10 mg/day. She reports significant improvement in her dizziness this morning although sitting up and lying back tends to trigger mild dizziness and hot flashes. She reports a low-grade frontal headache. Allergies Allergy/AdvReac Type Severity Reaction Status Date / Time No Known Allergies Allergy Verified 01/14/24 18:30 Home Medications Medication Instructions Recorded Confirmed Type lisinopril 5 mg tablet 5 mg PO DAILY #30 tabs 09/07/21 01/14/24 Rx Patient History Medical History Anxiety Social History Smoking Status: Never smoker Hx Alcohol Use: Yes Alcohol type: wine Hx Substance Use: No Preferred Language: Czech Communication Ability: Effective Inspector [employer] Required: No Beliefs That Will Affect Care: None Current Living Situation: Spouse Feels Safe at Home: Yes Review of Systems Constitutional: no fever and no chills Eyes: no blind spots and no diplopia Ear, Nose, Mouth, Throat: no ear pain and no hearing loss Respiratory: no cough and no dyspnea Cardiovascular: no chest pain and no palpitations Gastrointestinal: as per Subjective / HPI, + nausea and + vomiting Genitourinary: no dysuria and no urinary incontinence Musculoskeletal: no neck pain, no myalgia and no muscle weakness Integumentary: no rash and no lesions Neurologic: as per Subjective / HPI, + dizziness and + headache(s); no localized weakness, no loss of sensation, no radiating pain, no tremor(s), no seizure-like activity, no syncope, no abnormal speech, no confusion and no memory loss Psychiatric: no depression and no anxiety Hematologic / Lymphatic: no easy bleeding and no easy bruising Exam (Neuro) Constitutional: well developed and healthy appearing; no acute distress Eyes: normal visual oh by confrontation, PERRL and EOM intact bilaterally; no nystagmus Neurologic: Oriented to:: Person, Place and Time Memory: Short Term Intact and Remote Intact Attention: Span Intact and Concentration Intact Speech Fluency: negative Dysarthria or Dysfluency Speech Aphasia: negative Aphasia Fund of Knowledge: Current Events, Past History and Vocabulary Cranial Nerves: Normal II, III, IV, , V, VII, VIII, IX, X, XI and XII Motor Strength: Normal Lower Extremities and Normal Upper Extremities Motor Tone: Normal Lower Extremities and Normal Upper Extremities Muscle Bulk/Involuntary Movements: No Involuntary Movements; negative Muscle Atrophy Sensation: Light Touch Intact, Pain/Temperature Intact and Proprioception Intact Coordination: Normal; negative Limited Balance, Dysdiadochokinesia, Finger-Nose Abnormal or Heel-Farley Abnormal Deep Tendon Reflexes: Rt Triceps: 2+, Lt Triceps: 2+, Rt Biceps: 2+, Lt Biceps: 2+, Rt Brachioradialis: 2+, Lt Brachioradialis: 2+, Rt Patellar: 2+, Lt Patellar: 2+, Rt Ankle: 2+ and Lt Ankle: 2+ Special Tests: negative Babinski Present Gait: Normal Station and Gait Results & Data Vital Signs (Past 12 Hours) Vital Signs Temp Pulse Pulse Pulse Resp BP Pulse Ox 01/15/24 08:39 36.7 C 73 14 153/102 H 95 01/15/24 07:09 81 01/15/24 02:51 36.4 C L 61 18 169/99 H 98 01/14/24 23:39 90 O2 Del Method 01/15/24 08:39 Room Air 01/15/24 07:09 01/15/24 02:51 Room Air 01/14/24 23:39 Coding Level of Care Code 54803 INT INP/OBS CARE 3/75MIN Diagnoses Vertebral artery dissection I77.74 Dizziness R42 New onset headache R51.9 Hypertension I10 Hypertension type: unspecified Time Spent (min) 80 Comment Total time includes patient contact, chart review, counseling, note preparation (4) Hypertension Hypertension type: unspecified Qualified Code(s): I10 - Essential (primary) hypertension
[2024-01-15] MEDS ORDERED: Nursing to Pharmacy Communication SCH (12:15)
[2024-01-15] MEDS: KETOROLAC 30 MG/ML VIAL IV ONE (12:55)
--- NOTE | 2024-01-15 17:21 | Discharge Summary ---
Discharge Summary Date of Service January 15, 2024 Principal Dx & Hospital Course #1 = Principal Diagnosis (1) Stroke-like symptoms: Patient had acute onset of dizziness and headache that caused her to fall on Wednesday 01/10 Patient is >24h from her onset of symptoms; TNKase not be indicated Clinically, patient denies slurred speech, facial droop, or unilateral deficits She does endorse severe intermittent headache (which is new for her) and ongoing dizziness Head/neck imaging revealed focal dissection in the V4 segment of right vertebral artery MRI brain ordered, without stroke ASA 324 mg given in the ED, consult neurology recommends daily 81 mg aspirin and follow up with outpt neuro and repeat mri 3 months ABCD2 score is 2, recommending antiplatelet therapy Acetaminophen as needed for headaches Meclizine for dizziness increase lisinopril to 10mg a day for better blood pressure control (2) Chest tightness: Intermittent chest tightness and SOB worse with exertion that began on Wednesday 01/10 Patient was concerned due to her strong family history of cardiac events CXR without acute findings Chest CTA without evidence of PE Troponin WNL x 2 EKG revealed NSR Echocardiogram normal no RWMA chest pain in context of accelerated hypertension (3) Hypertension: Patient was hypertensive at 190/127 on ED arrival No need for permissive HTN given not ischemic stroke need to control BP given di ssection increased dose of lisinopril (4) Hypokalemia: continue to replete, magnesium is replete Plan Full code Notes For Next Care Provider Patient started on daily aspirin, increased dose lisinopril done, meclizine scheduled 3 times daily until symptoms of dizziness resolved. If dizziness does not resolve in a week consider outpatient referral for audiology. Will need follow-up with neurology and have an outpatient MRI in 3 months. Admission HPI Per Admitting Provider Fiona is a pleasant 53-year-old female with PMH of HTN and anxiety. She presented at the behest of her PCP on 01/13 for new onset headache, dizziness, chest tightness, and NUÑEZ over the weekend. She reports that her symptoms initially started on Wednesday 01/10. Symptoms came on acutely when she developed dizziness and fell. No head strike or neck injury. No LOC. No trauma to the chest wall. She initially thought it was an episode of vertigo; history of vertigo several years ago. She then began to notice new onset NUÑEZ when walking up steps. No SOB at rest. No orthopnea. She has noticed labored breathing, and believes she is becoming more winded than normal. She endorses chest tightness substernally that last 2 minutes at a time; alleviated by pursed breathing; she has been taking Tylenol for this. She also has intermittent headaches, located behind the eyes bilaterally. She rates the headaches 8/10 at present, 9/10 at worst. She has had intermittent dizziness on and off since Sunday, as well as visual changes such as blurry vision, but she believes her vision is always blurry. She wears contacts at baseline. Patient's only medication is lisinopril 5 mg daily, but she reports she took a couple additional tablets this weekend due to high blood pressure; BP has been around 170/100 via her home cuff. Patient is also been taking a course of Augmentin for a gum issue, but is currently at the end of her course. Significant family history for HTN, diabetes, CO, stroke, and CHF; her brother had an CO at 54 years old. No personal PMH of stroke, CO, diabetes, DVT/PE, or CHF. She denies any strokelike symptoms such as slurred speech, facial droop, or unilateral deficits. Patient denies smoking or tobacco use. She does endorse occasional alcohol use; and wine 3 nights ago. Patient is hypertensive at 166/121, admission; vitals otherwise stable. ED course: Aspirin 324mg ROS: Patient endorses night-sweats, intermittent episode dizziness, leaning to left side, severe bilateral HAs behind the eyes, chest tightness, SOB with exertion, and nausea/vomiting (on 01/10; resolved) Patient denies fever, chills, new body ache, loss of vision, slurred speech, facial droop, unilateral deficits, chest pain, pleuritic CP, SOB at rest, SOB when lying flat on back, abdominal pain, diarrhea, or change in urinary or bowel habits. Discharge Exam Awake alert and appropriate no focal deficits complaining minor headache no vert iginous symptoms at present Updated Medication List Medication Instructions Recorded Confirmed Type aspirin 81 mg tablet,delayed 81 mg PO DAILY #90 tabs 01/15/24 Rx release lisinopril 10 mg tablet 10 mg PO DAILY #30 tabs 01/15/24 Rx meclizine 12.5 mg tablet 12.5 mg PO TID #3 tabs 01/15/24 Rx Hospital Stay Data Consultations 01/15/24 10:10 Consult Neurology Routine Diagnostic Imagining Performed 01/14/24 16:24 CT angio head w con Stat CT angio neck with con Stat CT head/brain wo con Stat 01/14/24 18:05 CT angio chest PE protocol Stat 01/14/24 20:04 MR brain wo con Routine Pending Results Patient Have Any Pending Studies at Discharge: Yes Discharge Instructions Given to Patient (Per Discharging Provider) for your vertebral artery dissection, take a baby aspirin a day , follow up with Dr Mclain follow up with your primary care for blood pressure recheck, increase your lisinpril to 10 mg a day take your meclizine three times a day until you have a day without dizziness then take as needed, if your dizziness does not improve in a week contact your primary care Your echo is not read at the time of discharge you will be contacted with the results Total Time Total Time Spent Total Time Spent (In Minutes): It required greater than 30 minutes to prepare this patient for discharge. Coding Level of Care Code 05724 INP/OBS DISCH >30 MIN Diagnoses Stroke-like symptoms R29.90 Chest tightness R07.89 Hypertension I10 Hypertension type: unspecified Hypokalemia E87.6
--- NOTE | 2024-01-15 21:07 | XCELERA ---
[id number]}___[id number]
--- NOTE | 2024-01-16 06:09 | Electrocardiogram Report ---
Test Reason : Blood Pressure : / mmHG Vent. Rate : 062 BPM Atrial Rate : 062 BPM P-R Int : 114 ms QRS Dur : 094 ms QT Int : 392 ms P-R-T Axes : 053 081 088 degrees QTc Int : 397 ms Normal sinus rhythm Cannot rule out Anterior infarct (cited on or before 14-JAN-2024) Nonspecific T wave abnormality Abnormal ECG When compared with ECG of 07-SEP-2021 15:30, No significant change was found Confirmed by Mando Godinez ([id number]) on 01/16/2024 6:09:32 AM Referred By: Confirmed By:Mando Godinez
== END 2024-01-15 15:58 | disposition home or self-care (01) ==
LOC: 2N 16:19 → ED 16:19 → SUATTDRO 20:12 → 2N 21:33